=== PATIENT | male | born 1965 | race Caucasian/White ===

== ENCOUNTER 2017-07-01 11:17 | Emergency (ER) | payer MEDICARE, OTHER ==
[2017-07-01 11:23] VITALS: BP 127/80
--- NOTE | 2017-07-01 12:13 | ER Document Report ---
ED Extremity Problem, Upper - General Mode of Arrival: Ambulatory Information source: Patient TRAVEL OUTSIDE OF THE [place] IN LAST 30 DAYS: No - General Chief Complaint: Shoulder Injury Stated Complaint: SHOULDER PAIN Time Seen by Provider: 07/01/17 11:55 Notes: Patient is a 51-year-old male who presents to the emergency department today with complaints of left shoulder pain. Patient states he was working when an approximately 300 pounds "roller" became unlatched and he tried to grab it. Patient states his left arm was pulled back and he "heard a pop". (CASSI CARLOS ) - Related Data Allergies/Adverse Reactions: codeine [Codeine] Allergy (Verified 09/28/14 22:51) diphenhydramine HCl [From Benadryl] Allergy (Verified 09/28/14 22:51) Past Medical History - General Information source: Patient - Social History Smoking Status: Current Every Day Smoker Cigarette use (# per day): No Chew tobacco use (# tins/day): No Frequency of alcohol use: None Drug Abuse: None Lives with: Family Family History: Reviewed & Not Pertinent Patient has suicidal ideation: No Patient has homicidal ideation: No Neurological Medical History: Reports: Hx Migraine Renal/ Medical History: Denies: Hx Peritoneal Dialysis GI Medical History: Reports: Hx Gastritis, Hx Gastroesophageal Reflux Disease Traumatic Medical History: Reports: Hx Traumatic Brain Injury Past Surgical History: Reports: Hx Cardiac Surgery - ablation, Hx Orthopedic Surgery - shoulder, knees, wrist Review of Systems - Review of Systems Constitutional: No symptoms reported EENT: No symptoms reported Cardiovascular: No symptoms reported Respiratory: No symptoms reported Gastrointestinal: No symptoms reported Genitourinary: No symptoms reported Male Genitourinary: No symptoms reported Musculoskeletal: See HPI, Joint pain - left shoulder Skin: No symptoms reported Hematologic/Lymphatic: No symptoms reported Neurological/Psychological: No symptoms reported -: Yes All other systems reviewed and negative Physical Exam - Vital signs Vitals: Temp Pulse Resp BP Pulse Ox 98.1 F 93 17 127/80 H 97 07/01/17 11:22 07/01/17 11:22 07/01/17 11:22 07/01/17 11:22 07/01/17 11:22 - Notes Notes: Physical Exam: General: Alert, appears well. HEENT: Normocephalic. Atraumatic. PERRLA. Extraocular movements intact. Oropharynx clear. Neck: Supple. Respiratory: No respiratory distress. Abdominal: Normal Inspection. No distension. Extremities: No palpable AC joint abnormality. Able to abduct left shoulder to 90, pain with adduction. No crepitus. Neurological: Normal cognition. AAOx4. Normal speech. Psychological: Normal affect. Normal Mood. Skin: Warm. Dry. Normal color. (CASSI CARLOS) Course - Re-evaluation Re-evalutation: 07/01/17 13:51 No evidence of fracture dislocation. Will provide anti-inflammatories and follow-up with orthopedics for reevaluation within 1 week (MIKHAIL CERVANTES) - Vital Signs Vital signs: Temp Pulse Resp BP Pulse Ox 98.1 F 93 17 127/80 H 97 07/01/17 11:22 07/01/17 11:22 07/01/17 11:22 07/01/17 11:22 07/01/17 11:22 Discharge - Discharge Clinical Impression: Left shoulder strain Qualifiers: Encounter type: initial encounter Qualified Code(s): S46.912A - Strain of unspecified muscle, fascia and tendon at shoulder and upper arm level, left arm , initial encounter Condition: Good Disposition: HOME, SELF-CARE Instructions: Shoulder Injury ([facility]), Sling as Treatment ([facility]) Prescriptions: Acetaminophen [Tylenol] 325 mg PO ASDIR PRN #30 tablet PRN Reason: Naproxen 500 mg PO BID #30 tablet Referrals: STACIE SIMPSON MD [ACTIVE STAFF] - Follow up in 1 week Scribe Attestation: 07/04/17 10:49 I personally performed the services described in the documentation, reviewed and edited the documentation which was dictated to the scribe in my presence, and it accurately records my words and actions. (MIKHAIL CERVANTES) Scribe Documentation - Scribe Written by Guerrero:: Guerrero Fischer, 07/01/2017 1520 acting as scribe for :: Danie
[2017-07-01] MEDS ORDERED: KETOROLAC TROMETHAMINE 60 MG/2 ML SDV IM ONE (12:15)
--- NOTE | 2017-07-01 12:58 | RADIOLOGY REPORT (SQ) ---
EXAM DESCRIPTION: SHOULDER LEFT 2 OR MORE VIEWS COMPLETED DATE/TIME: 07/01/2017 12:51 pm REASON FOR STUDY: shoulder pain COMPARISON: None. NUMBER OF VIEWS: Three views. TECHNIQUE: Internal rotation, external rotation, and Y view images acquired of the left shoulder. LIMITATIONS: None. FINDINGS: MINERALIZATION: Normal. BONES: No acute fracture or dislocation. No worrisome bone lesions. JOINTS: No dislocation. VISUALIZED LUNGS AND RIBS: No pneumothorax. No rib fracture. SOFT TISSUES: No radiopaque foreign body. OTHER: No other significant finding. IMPRESSION: NO SIGNIFICANT RADIOGRAPHIC ABNORMALITY. TECHNICAL DOCUMENTATION: JOB ID: [id number] [employer]- All Rights Reserved Reading location - IP/workstation name: [email or web address]
== END 2017-07-01 14:46 | disposition home or self-care (01) ==
LOC: ER 11:17
DX: S46.912A Strain of unspecified muscle, fascia and tendon at shoulder and upper arm level, left arm, initial encounter (principal); X50.0XXA Overexertion from strenuous movement or load, initial encounter; Y99.0 Civilian activity done for income or pay; Z88.6 Allergy status to analgesic agent; F17.200 Nicotine dependence, unspecified, uncomplicated
CPT/HCPCS: 99283; 96372; 73030; J1885

== ENCOUNTER 2018-11-23 08:50 | Day surgery (SDC) | payer OTHER, MEDICARE ==
[~2018-11-23 08:50] MED LIST: PROPOFOL INJ 200 MG/20 ML VIAL IV ONE
[2018-11-23 10:44] VITALS: BP 120/79
--- NOTE | 2018-11-23 11:57 | Operative Report ---
Operative Report DATE OF SURGERY: 11/23/18 Operative Report: The risks, benefits and alternatives of the procedure including the risk of bleeding, perforation requiring surgery have been explained to the patient in detail and informed consent has been obtained. The patient is taken back to the endoscopy suite and placed in a left, lateral decubital position. Timeout was called. Propofol medication is administered. Rectal examination is done which did not reveal any masses, tears or fissures. An Olympus videoscope was introduced into the patient's rectum. The scope was then carefully advanced all the way to the cecum. The cecum was identified by the usual anatomical landmarks of the ileocecal valve as well as the appendiceal office. Photodocumentation is obtained. Scope was then sequentially pulled back via the various segments of the colon including the ascending colon, hepatic flexure, transverse colon, splenic flexure, descending colon and finally into the rectosigmoid portions of the colon. Retroflexion maneuvers performed. The risks benefits and alternatives of the procedure explained to the patient in detail and informed consent is obtained.A GIF Olympus video scope was inserted into the patient's mouth and hypopharynx, the esophagus is identified intubated and insufflated, the scope was then advanced through the esophagus stomach and duodenum, retroflexion maneuver is done, the esophagus stomach and first and second portions of the duodenum examined. PREOPERATIVE DIAGNOSIS: Personal history of polyp, known history of Fernandez's esophagus POSTOPERATIVE DIAGNOSIS: Colonoscopy shows internal hemorrhoids, diverticulosis without any evidence of diverticulitis. Small sigmoid polyp that was removed via biopsy forceps. Gastritis status post biopsy. Fernandez's esophagus that was treated with radiofrequency ablation OPERATION: Colonoscopy with biopsy. EGD with ablation. EGD with biopsy SURGEON: ANNELIESE RODRIGUEZ ANESTHESIA: LMAC TISSUE REMOVED OR ALTERED: As noted above. COMPLICATIONS: None. ESTIMATED BLOOD LOSS: None. INTRAOPERATIVE FINDINGS: As noted above. PROCEDURE: Patient tolerated the procedure well. No immediate postprocedure complications are noted. Patient is discharged in good condition. Discharge date 11/23/2018. Discharge diet: Regular. Discharge activity: Regular. 2 to 3-week follow-up to discuss findings. Patient is instructed to call the office or proceed to the emergency room should there be any further problems or questions. 3 to 5-year surveillance colonoscopy. Wait on the pathology.
== END 2018-11-23 10:45 | disposition home or self-care (01) ==
LOC: END 08:50
PROVIDERS: ATTEND Internal Medicine Gastroenterology
DX: K22.719 Barrett's esophagus with dysplasia, unspecified (principal); K29.50 Unspecified chronic gastritis without bleeding; K64.8 Other hemorrhoids; K57.30 Diverticulosis of large intestine without perforation or abscess without bleeding; D12.5 Benign neoplasm of sigmoid colon; Z86.010 Personal history of colon polyps; Z12.11 Encounter for screening for malignant neoplasm of colon
CPT/HCPCS: 43270; 43239; 45380; 88305 ×2; 00813; J2704; 813